=== PATIENT | female | born 1980 | race Caucasian/White ===

== ENCOUNTER 2017-05-26 07:14 | Inpatient (IN) | payer BC ==
[~2017-05-26] VITALS: Ht 172.7 cm; Wt 79.5 kg
[2017-05-26] MEDS ORDERED: D5%-LACTATED RINGERS 1,000 ML IV SCH (07:33)
[2017-05-26] MEDS ORDERED: OXYTOCIN 30U/ 0.9% NaCL 500ML 500 ML IV ONE (07:33)
[2017-05-26] MEDS ORDERED: OXYTOCIN 30U/ 0.9% NaCL 500ML 500 ML IV PRN (07:33)
[2017-05-26] MEDS ORDERED: OXYTOCIN 30U/ 0.9% NaCL 500ML 500 ML ONE ×2 (07:53→19:21)
[2017-05-26] MEDS ORDERED: LIDOCAINE 1%, 20ML ONE ×2 (07:53→18:34)
[2017-05-26] MEDS ORDERED: MISOPROSTOL 200 MCG TABLET ONE ×2 (07:53→18:24)
[2017-05-26] MEDS ORDERED: NEWBORN KIT ONE (07:53)
[2017-05-26 07:58] LABS: HEMATOCRIT 36.7 % (34.6-47.8); HEMOGLOBIN 12.7 g/dL (11.7-16.4); WHITE BLOOD COUNT 6.3 x10^3/uL (3.4-10)
[2017-05-26] MEDS ORDERED: ONDANSETRON 2MG/ML, 2ML IVPush PRN (08:00)
[2017-05-26] MEDS ORDERED: METOCLOPRAMIDE 5 MG/ML, 2ML IVPush PRN (08:00)
[2017-05-26] MEDS ORDERED: SODIUM CITRATE/CITRIC ACID 30 ML UDC PO PRN (08:00)
[2017-05-26] MEDS: LACTATED RINGERS 1,000 ML IV SCH ×2 (08:01→15:48)
[2017-05-26 08:24] VITALS: BP 107/72
[2017-05-26] MEDS ORDERED: FENTANYL PF 100 MCG/2ML ONE ×2 (15:53→16:50)
[2017-05-26] MEDS: FENTANYL PF 100 MCG/2ML IVPush PRN ×2 (15:55→16:58)
[2017-05-26] MEDS ORDERED: ONDANSETRON 2MG/ML, 2ML IV PRN (19:30)
[2017-05-26] MEDS ORDERED: OXYcodone/APAP 5/325MG TABLET PO PRN ×2 (19:30)
[2017-05-26] MEDS ORDERED: ACETAMINOPHEN 325 MG TABLET PO PRN (19:30)
[2017-05-26] MEDS ORDERED: DOCUSATE 100 MG CAPSULE PO PRN (19:30)
[2017-05-26] MEDS ORDERED: CARBOPROST TROMETHAMINE 250 MCG/ML, 1ML IM PRN (19:30)
[2017-05-26] MEDS ORDERED: METHYLERGONOVINE 0.2 MG/ML IM PRN (19:30)
[2017-05-26] MEDS ORDERED: OXYTOCIN 10 UNITS/ML, 1ML IM PRN (19:30)
[2017-05-26] MEDS ORDERED: MISOPROSTOL 200 MCG TABLET PR PRN (19:30)
[2017-05-26] MEDS ORDERED: IBUPROFEN 600 MG TABLET ONE ×2 (19:36)
[2017-05-26] MEDS: IBUPROFEN 600 MG TABLET PO PRN (19:38)
[2017-05-26] MEDS: OXYTOCIN 30U/ 0.9% NaCL 500ML 500 ML IV SCH (19:45)
[2017-05-26 20:30] VITALS: BP 114/73
[2017-05-26 21:30] VITALS: BP 112/69
[2017-05-27] VITALS: BP 112/62
[2017-05-27 02:20] LABS: HEMATOCRIT 34.8 % (34.6-47.8); HEMOGLOBIN 12.1 g/dL (11.7-16.4); WHITE BLOOD COUNT 15.3 x10^3/uL (3.4-10)
[2017-05-27] MEDS: IBUPROFEN 600 MG TABLET PO PRN ×2 (02:23→08:31)
[2017-05-27 03:30] VITALS: BP 111/64
[2017-05-27] MEDS: OXYTOCIN 30U/ 0.9% NaCL 500ML 500 ML IV SCH (05:03)
[2017-05-27 07:50] VITALS: BP 102/69
[2017-05-27] MEDS ORDERED: PRENATAL VIT/IRON/FA 1 EACH TABLET PO SCH (09:00)
[2017-05-27] MEDS ORDERED: HYDR-3240 PO (14:39)
[2017-05-27] MEDS ORDERED: IBUP-1222 PO (14:40)
[2017-05-27] MEDS ORDERED: SENN-87 PO (14:41)
[2017-05-27] MEDS ORDERED: PRAM15FO4 RC (14:42)
== END 2017-05-27 18:37 | disposition home or self-care (01) | DRG 775 ==
LOC: LDIP 07:14 → 2NW 20:38
PROVIDERS: ADMIT Obstetrics & Gynecology; ATTEND Obstetrics & Gynecology
PROC: 10E0XZZ Delivery of Products of Conception, External Approach (ICD-10-PCS; principal; 2017-05-26)
PROC: 0KQM0ZZ Repair Perineum Muscle, Open Approach (ICD-10-PCS; 2017-05-26)
PROC: 0UQMXZZ Repair Vulva, External Approach (ICD-10-PCS; 2017-05-26)
PROC: 10907ZC Drainage of Amniotic Fluid, Therapeutic from Products of Conception, Via Natural or Artificial Opening (ICD-10-PCS; 2017-05-26)
DX: O77.0 Labor and delivery complicated by meconium in amniotic fluid (principal); O69.81X0 Labor and delivery complicated by cord around neck, without compression, not applicable or unspecified; Z37.0 Single live birth; Z3A.39 39 weeks gestation of pregnancy; O70.1 Second degree perineal laceration during delivery; O71.82 Other specified trauma to perineum and vulva; Z88.0 Allergy status to penicillin
CPT/HCPCS: 36415; 85025; 86850; 86900; J3010; J2590; J7120